=== PATIENT | female | born 1995 ===

== ENCOUNTER 2025-10-05 08:12 | Outpatient (CLI) | payer BC ==
[2025-10-05] VITALS (8 sets, daily range): BP systolic 112–150; BP diastolic 65–93; PULSE 74–126
== END 2025-10-05 23:59 | disposition home or self-care (01) ==
LOC: CARD DIAG 08:12
PROVIDERS: ATTEND Internal Medicine Cardiovascular Disease
DX: R40.4 Transient alteration of awareness (principal); R42 Dizziness and giddiness
CPT/HCPCS: 93660